=== PATIENT | male | born 1945 | race Caucasian/White ===

== ENCOUNTER 2017-06-16 05:56 | Day surgery (SDC) | payer OTHER ==
[~2017-06-16] VITALS: Ht 172.7 cm; Wt 78.9 kg
[2017-06-16] VITALS (11 sets, daily range): BP systolic 139–182; BP diastolic 82–118; PULSE 66–92; RESP 16–20; TEMP 97.8–98.6; O2SAT 97–99
[~2017-06-16 05:56] MED LIST: ASPI325T PO; CLON.1 PO; COZA100T PO; DILT180C56 PO; GEMF600T PO; PRAV20TA PO; TAB-TAB PO
[2017-06-16] MEDS ORDERED: LORazepam 1 MG TAB SL SCH (06:15)
[2017-06-16] MEDS ORDERED: POVIDONE IODINE 5% (ANTISEPSIS KIT) 4 APPLICATIONS EACH NARE PRN (06:30)
[2017-06-16] MEDS ORDERED: METOPROLOL TARTRATE 25 MG TAB PO PRN (06:30)
[2017-06-16] MEDS ORDERED: CHLORHEXIDINE GLUCONATE 2 % 1 PACK (2 CLOTHS) TOPICAL PRN (06:30)
[2017-06-16] MEDS ORDERED: LACTATED RINGER'S 1000 ML IV PRN (06:30)
[2017-06-16] MEDS ORDERED: SODIUM CHLORID 0.9% 500 ML IV PRN (06:30)
[2017-06-16] MEDS ORDERED: LOSA100T PO (06:42)
[2017-06-16] MEDS ORDERED: APIX5TAB PO (06:42)
[2017-06-16] MEDS ORDERED: CARD120C4 PO (06:42)
[2017-06-16] MEDS ORDERED: FENO160T PO (06:42)
[2017-06-16] MEDS ORDERED: VITATAB56 PO (06:42)
[2017-06-16] MEDS ORDERED: TEMA30CA PO (06:42)
[2017-06-16 06:58] LABS: AUTOMATED NEUTROPHIL # 3.4 TH/MM3 (1.8-7.7); BASOPHIL % 0.7 % (0.0-2.0); EOSINOPHIL # 0.2 TH/MM3 (0-0.4); EOSINOPHIL % 3.8 % (0.0-4.0); HEMATOCRIT 46.3 % (39.0-51.0); HEMOGLOBIN 15.7 GM/DL (13.0-17.0); LYMPH % 26.2 % (9.0-44.0); LYMPHOCYTE # 1.6 TH/MM3 (1.0-4.8); MEAN CELL VOLUME 87.2 FL (80.0-100.0); MEAN CORPUSCULAR HEMOGLOBIN 29.6 PG (27.0-34.0); MEAN CORPUSCULAR HGB CONC 33.9 % (32.0-36.0); MEAN PLATELET VOLUME 9.1 FL (7.0-11.0); MONO % 12.6 % (0.0-8.0); MONOCYTE # 0.7 TH/MM3 (0-0.9); NEUT % 56.7 % (16.0-70.0); PLATELET COUNT 196 TH/MM3 (150-450); RED BLOOD COUNT 5.31 MIL/MM3 (4.50-5.90); RED CELL DISTRIBUTION WIDTH 16.1 % (11.6-17.2); WHITE BLOOD COUNT 5.9 TH/MM3 (4.0-11.0)
[2017-06-16 06:59] LABS: INTERNATIONAL NORMALIZED RATIO 1.4 RATIO; PROTHROMBIN TIME - PATIENT 13.7 SEC (9.8-11.6)
[2017-06-16 07:07] LABS: BICARBONATE 28.4 MEQ/L (21.0-32.0); CALCIUM 9.6 MG/DL (8.5-10.1); CREATININE 1.4 MG/DL (0.60-1.30)
[2017-06-16] MEDS ORDERED: LEVOFLOXACIN 500 MG PREMIX INJ 100 ML IV ONE (08:07)
[2017-06-16] MEDS ORDERED: HEPARIN-NS/PF INJ 1,000 ML ONE (08:07)
[2017-06-16] MEDS ORDERED: PROTAMINE SULFATE 50 MG/5 ML VIAL ONE (08:49)
[2017-06-16] MEDS ORDERED: HEPARIN SODIUM - IV 10,000 UNITS/10 ML VIAL ONE (08:49)
[2017-06-16] MEDS ORDERED: FUROSEMIDE 40 MG/4 ML VIAL ONE (08:49)
[2017-06-16] MEDS ORDERED: HEPARIN-D5W 25,000 U/250 ML 250 ML ONE (08:49)
[2017-06-16] MEDS ORDERED: ISOPROTERENOL HCL 1 MG/5 ML AMP ONE (08:49)
[2017-06-16] MEDS ORDERED: MIDAZOLAM HCL 2 MG/2 ML VIAL ONE (09:18)
[2017-06-16] MEDS ORDERED: ePHEDrine/NS 25 MG/5 ML SYRINGE IV ONE (12:00)
[2017-06-16] MEDS ORDERED: NEOSTIGMINE 5 MG/5 ML SYRINGE IV PUSH ONE (12:00)
[2017-06-16] MEDS ORDERED: ROCURONIUM INJ 50 MG/5 ML SYRINGE IV PUSH ONE (12:00)
[2017-06-16] MEDS ORDERED: PROPOFOL 200 MG/20 ML AMP IV ONE (12:00)
[2017-06-16] MEDS ORDERED: PHENYLEPH/NS 1000 MCG/10 ML SYR IV ONE (12:00)
[2017-06-16] MEDS ORDERED: GLYCOPYRROLATE 1 MG/5 ML SYRINGE IV PUSH ONE (12:00)
[2017-06-16] MEDS ORDERED: DEXAMETHASONE SOD PHOS 4 MG/ML VIAL IV ONE (12:00)
[2017-06-16] MEDS ORDERED: ONDANSETRON HCL 4 MG/2 ML VIAL IV ONE (12:00)
[2017-06-16] MEDS ORDERED: LIDOCAINE HCL 1% PF 5 ML SYRINGE OTHER ONE (12:00)
--- NOTE | 2017-06-16 12:04 | CATHPROC ---
Patient Name: ITZEL HINES Study #: [id number] Initial MD: Lucho Bernard Date of : 1945 Study Date: 06/16/2017 Cardiac Catheterization Report 06/16/2017 12:05:35 PM Financial #: [id number] 1 of 10 Patient Name: ITZEL HINES Study #: [id number] Initial MD: Lucho Bernard Date of : 1945 Study Date: 06/16/2017 Entire Case Report Patient Information Patient Name ITZEL HINES Date of 1945 Age 71 years Financial # [id number] Gender M AlternateID Lab Number 2 Room Number DC06 Height (in) 68.0 Height (cm) 172.7 BSA 1.93 Weight (lbs) 173.6 Weight (kg) 78.9 Patient Address/Phone Number Home Address [facility] Home Phone Number [phone] [facility] [address] Study Information Study Number Admission Scheduled Start Study Start [id number] Jun 16 2017 5:56AM 06/16/2017 Jun 16 2017 9:21AM [place] [facility] Electrophysiology Study Admit Source Facility Department Other [facility] - Cathodic Protection Technician Physician and Clinical Staff Initial Lucho Benito Die Fitter Joleen Pisano,CHILD NURSE Other Anesthesia, PANEL MACHINE OPERATOR Recorder Fabiana Duffy,RN Recorder Carlene Fried,CRISTY Scrub Celio Rivera,RT(R) Procedures Performed Procedure Location (Site) Vessel Name Ablation Procedure Cardioversion ICE CATHETER INSERT RA Atruim RF Ablation LT. ATRIUM LT. ATRIUM 06/16/2017 12:05:35 PM Financial #: [id number] 2 of 10 Patient Name: ITZEL HINES Study #: [id number] Initial MD: Lucho Bernard Date of : 1945 Study Date: 06/16/2017 Equipment Time Noc Technician Description Size Mfg Part Number Used/Scraped NEEDLE, TRANSSEPTAL NRG 98 [id number] 09:24 [facility] Used C1 *[id number] [employer]/ EP [id number] 09:24 KIT, TRANSDUCER / AFIB Used PACER *[id number] CATHETER, TACTICATH ABLAT BUNDLE 09:24 [facility] Used 65 BUNDLE *[id number]- BUNDLE [id number] CATHETER, FR7 OPTIMA SPIRAL 09:24 [facility] FR7 *[id number]- Used BUNDLE BUNDLE [id number] 09:24 [facility] CATHETER, JSN, QUAD BUNDLE FR 5 *[id number]- Used BUNDLE [id number] 09:24 [facility] CATHETER, JSN, QUAD BUNDLE FR 5 *[id number]- Used BUNDLE [id number] SET, COOL POINT TUBING 09:24 BUND[facility] *[id number]- Used BUNDLE BUNDLE SHEATH, FR8.5 STEERABLE SM 09:24 [facility] 71CM [id number] Used 71CM BUNDLE COVER, TRANSDUCER CABLE 612-113 09:24 [employer] Used ACUNAV *[id number] 09:24 CORDIS/PACER SHEATH, FR10 ALBERTA 11CM FR 10 Used *[id number] 09:24 CORDIS/PACER SHEATH, FR9 ALBERTA 11CM FR 9 [id number] Used [id number] 09:24 [employer] INDUSTRIES PACK, CCL CUSTOM * Used *[id number] 09:24 [employer] PACER BELL, LIMB * 2530 *[id number] Used [id number]-- 09:24 [employer] MEDICAL SHEATH, FR4.5 PRELUDE 11CM FR 4.5 Used [id number] 09:24 NAMIC TUBING, HIGH PRESSURE 48" 48" Used *[id number] 09:24 NAMIC TUBING, HIGH PRESSURE 48" 48" Used *[id number] 09:24 [employer] BL[employer]ET,WARM AIR CCL * Used *[id number] [id number] 09:24 [facility] MEDICAL ELECTRODE KIT, DEBI X SURFACE * Used *[id number] 09:24 [facility] MEDICAL SHEATH, EPS, FR6 FAST CATH FR 6 Used *[id number] 09:24 [facility] MEDICAL SHEATH, EPS, FR7 FAST CATH FR 7 [id number] Used 549648 09:24 [facility] MEDICAL SHEATH, EPS, FR8 FAST CATH FR 8 Used *[id number] CATHETER, ACUNAV FR10 ICE [id number] 09:59 VICENTE FR 10 Used (VICENTE) *[id number] [facility], ELECTROSURGICAL 09:24 * [id number] *[id number] Used SURGICAL GROUNDING (BLUE) 06/16/2017 12:05:35 PM Financial #: [id number] 3 of 10 Patient Name: ITZEL HINES Study #: [id number] Initial MD: Lucho Bernard Date of : 1945 Study Date: 06/16/2017 Insurance Information Insurance Payor Private Health Insurance Third Alliance Party Third Alliance Party Number [employer] G[employer]US HMO H[employer]CR[employer]X [place] History: Allergies Allergy Reaction No Known Allergies Plavix Warfarin History: Risk Factors Family History of Hypertension Dyslipidemia Previous MT Previous Heart Failure Premature CAD Yes Yes Yes No No Prior Valve Prior PCI Prior CABG Prior CABGDate Surgery No No Yes 06/09/2005 Cerebrovascular Peripheral Artery Chronic Lung On Dialysis Diabetes Disease Disease Disease No Yes No No No Labs Hgb (g/dl) Hct (%) WBC (l/cumm) Platelets (thousands) 11.60-17.00 35.00-51.00 4.00-11.00 150.00-450.00 15.7 46.3 5.9 196 Glucose (mg/dl) BUN (mg/dl) Creatinine (mg/dl) BUN:Creatinine (1:x) 74.00-106.00 7.00-18.00 0.50-1.30 10.00-20.00 80 22 1.4 15.7 Na (meq/l) K (meq/l) 136.00-145.00 3.50-5.10 141 3.3 INR (PTT:PT) 0.90-1.10 1.4 CPK-MB (ng/ML) 0.50-3.60 Not Drawn 06/16/2017 12:05:35 PM Financial #: [id number] 4 of 10 Patient Name: ITZEL HINES Study #: [id number] Initial MD: Lucho Bernard Date of : 1945 Study Date: 06/16/2017 Medication Medication Total Dose (Bolus/Oral) Medication Total Dosage/Unit 1% XYLOCAINE 40 mL HEPARIN 09738 units LASIX 20 mg PROTAMINE 40 mg Medications (Bolus/Oral) Medication Time Given Dosage/Unit Administered By Reason 1% XYLOCAINE 06/16/2017 9:51:08 AM 20 mL Lucho Bernard 20 mL 1% XYLOCAINE given in lab by Lucho Bernard in Left Groin via Subcutaneous. 1% XYLOCAINE 06/16/2017 9:54:51 AM 20 mL Lucho Bernard 20 mL 1% XYLOCAINE given in lab by Lucho Bernard in Right Groin via Subcutaneous. HEPARIN 06/16/2017 10:09:18 AM 31004 units Anesthesia, PANEL MACHINE OPERATOR 81222 units HEPARIN given in lab by Anesthesia, PANEL MACHINE OPERATOR via Peripheral IV. Ordered by Lucho Bernard. PROTAMINE 06/16/2017 11:27:29 AM 40 mg Anesthesia, PANEL MACHINE OPERATOR 40 mg PROTAMINE given in lab by Anesthesia, PANEL MACHINE OPERATOR via Peripheral IV. Ordered by Lucho Bernard. LASIX 06/16/2017 11:28:12 AM 20 mg Anesthesia, PANEL MACHINE OPERATOR 20 mg LASIX given in lab by Anesthesia, PANEL MACHINE OPERATOR via Peripheral IV. Ordered by Lucho Bernard. Medication (Drip) Medication Time Given Dosage/Unit Concentration/Unit Diluent (ml) Solution HEPARIN DRIP 06/16/2017 10:30:11 AM 1000 units/hr 05486 units 250 D5W 1000 units/hr HEPARIN DRIP given in lab by Anesthesia, PANEL MACHINE OPERATOR via Peripheral IV. Pump/Drip Flow = 10 ml /hr using D5[place] [address] units in 250 ml. Ordered by Lucho Bernard. ISUPREL 06/16/2017 11:06:00 AM 10 mcg/min 1 mg 250 NaCl .9 10 mcg/min ISUPREL given in lab by Anesthesia, PANEL MACHINE OPERATOR via Peripheral IV. Pump/Drip Flow = 150 ml/hr usi ng NaCl .9 with a concentration of 1 mg in 250 ml. Ordered by Lucho Bernard. 06/16/2017 12:05:35 PM Financial #: [id number] Patient Name: ITZEL HINES Study #: [id number] Initial MD: Lucho Bernard Date of : 1945 Study Date: 06/16/2017 Initial Case Assessment Cardiovascular HR Rhythm NIBP Chest Pain 85 AFIB 188/110 0 Edema Present Skin color Skin None Normal Warm Dry Circulatory - Right Pulses Dorsalis Pedis 1 Scale (0,1,2,3,4,d) Circulatory - Left Pulses Dorsalis Pedis 1 Scale (0,1,2,3,4,d) Neurological State Oriented to time-place- Alert Moves all extremities person Respiration - General Respiration Rate SpO2 (%) (B/min) 18 100 06/16/2017 12:05:35 PM Financial #: [id number] 6 of 10 Patient Name: ITZEL HINES Study #: [id number] Initial MD: Lucho Bernard Date of : 1945 Study Date: 06/16/2017 Final Case Assessment Cardiovascular HR Rhythm NIBP Chest Pain 88 sr 114/60 0 Edema Present Skin color Skin None Normal Warm Dry Circulatory - Right Pulses Dorsalis Pedis 1 Scale (0,1,2,3,4,d) Circulatory - Left Pulses Dorsalis Pedis 1 Scale (0,1,2,3,4,d) Circulatory - Lower Extremities Color Lower Right Color Lower Left Normal Normal Neurological State Lethargic Moves all extremities Respiration - General Respiration Rate SpO2 (%) O2 (lpm) (B/min) 16 100 4 Chronological Log Time Study Chronological Log 9:00:00 Patient arrived via Bed. 9:00:01 Patient Name, D.O.B, / Armband Verified By R.N. 9:15:58 Anesthesia at bedside. Assumes care of patient. SEE RECORDS FOR ALL MEDS AND VITALS DURING PROCEDURE 9:25:56 Pre-op and post- op instructions given; patient acknowledges understanding of instructions. Verbal Stimulation=~VERBAL~ Physical Stimulation=~PHYSICAL~ Airway=~AIRWAY~ Respiration=~RESPIR ATION~ 9:25:57 TOTAL=~TOTAL~. (0=absent, 1=limited, 2=present) 9:26:16 Patient has been NPO for More than 6Hrs. 9:26:17 Skin Breakdown- NON PER PATIENT 9:26:29 Disposable Defibrillator Pads Placed On Patient. 9:26:30 Patient Warmer Placed on the Table. 06/16/2017 12:05:35 PM Financial #: [id number] 7 of 10 Patient Name: ITZEL HINES Study #: [id number] Initial MD: Lucho Bernard Date of : 1945 Study Date: 06/16/2017 9:26:31 Elizabeth [employer] Protected 9:26:32 IV Warmer Connected To Patient. 9:26:34 A # 20 IV was noted in the Hand (left). Grade = 0 9:26:47 A # 20 IV was noted in the Wrist (right). Grade = 0 9:26:55 History and physical on the chart or being dictated. Assessment: Initial Case, HR=85 BPM, Rhythm=AFIB, XQSQ=444/110 mmhg, Chest Pain=0, Edema=None, Color=Normal, Skin = Warm, Dry Right Pulses: Diallo Ped=1 9:26:56 Left Pulses: Diallo Ped=1 Neurological: State=Alert, Ox3, RICE Respiration: Resp=18 B/min, WnE2=775 % 9:27:00 DR AGUERO / NARGIS WU AT BEDSIDE FOR INTUBATION 9:27:10 14F NAYLOR INSERTED BY Paul DUFFY CLEAR YELLOW URINE 9:27:27 Table restraints applied according to hospital policy 9:27:29 Bilateral groins prepped with 2% chlorhexidine, and draped after a 3 minute waiting time. Time Out. Correct patient, procedure, procedure equipment, site and side verified with physicia n present. Time 9:47:21 concurred by MD, individual staff and PANEL MACHINE OPERATOR. Time Out #2 - Consents verified, patient in correct position, all results are labled and displa yed, safety precautions 9:47:41 taken, antibiotics administered. Time out concurred by MD, individual staff and PANEL MACHINE OPERATOR in procedu re 9:47:52 Case Start 9:48:17 YRN IN PROGRESS 9:50:32 YRN COMPLETE 9:51:08 20 mL 1% XYLOCAINE given in lab by Lucho Bernard in Left Groin via Subcutaneous. 9:51:29 Vascular access was obtained in the Fem Vein (left). 9:51:44 Vascular access was obtained in the Fem Vein (left). 9:51:57 Vascular access was obtained in the Fem Vein (left). 9:51:58 Vascular access was obtained in the Fem Art (left). 9:52:10 A SHEATH, FR4.5 PRELUDE 11CM FR 4.5 was advanced into the Fem Art (left) using the Modified Seldinger technique. 9:52:31 A SHEATH, EPS, FR6 FAST CATH FR 6 was advanced into the Fem Vein (left) using the Modified Seldinger technique. 9:52:39 A SHEATH, EPS, FR7 FAST CATH FR 7 was advanced into the Fem Vein (left) using the Modified Seldinger technique. 9:52:42 A SHEATH, FR10 ALBERTA 11CM FR 10 was advanced into the Fem Vein (left) using the Modified S eldinger technique. 9:54:51 20 mL 1% XYLOCAINE given in lab by Lucho Bernard in Right Groin via Subcutaneous. 9:55:14 Vascular access was obtained in the Fem Vein (right). 9:55:52 A SHEATH, EPS, FR8 FAST CATH FR 8 was advanced into the Fem Vein (right) using the Modified Seldinger technique. A CATHETER, JSN, QUAD BUNDLE FR 5 was advanced vis Fem Vein (left) and placed in the CS. Placem ent was visually 9:57:26 confirmed under fluoroscopy. A CATHETER, JSN, QUAD BUNDLE FR 5 was advanced vis Fem Vein (left) and placed in the HIS. Place ment was 9:58:45 visually confirmed under fluoroscopy. 9:59:13 CATHETER, ACUNAV FR10 ICE (VICENTE) FR 10 Was Postioned. A SHEATH, FR8.5 STEERABLE SM 71CM BUNDLE 71CM was exchanged in the Fem Vein (right). This was n ecessary in 10:02:17 order to accomodate a larger catheter. 10:03:49 BAYLIS NEEDLE INSERTED 10:09:18 32068 units HEPARIN given in lab by Anesthesia, PANEL MACHINE OPERATOR via Peripheral IV. Ordered by Mignon Bernard. 06/16/2017 12:05:35 PM Financial #: [id number] Patient Name: ITZEL HINES Study #: [id number] Initial MD: Lucho Bernard Date of : 1945 Study Date: 06/16/2017 10:10:24 A eps was advanced to the right atrium and passed through the septal wall to the left atriu m. 10:10:28 BAYLIS NEEDLE REMOVED A CATHETER, FR7 OPTIMA SPIRAL BUNDLE FR7 was advanced vis Fem Vein (right) and placed in the LA . Placement 10:11:07 was visually confirmed under fluoroscopy. 10:11:39 MAPPING IN PROGRESS 10:14:28 Activated Clotting Time Drawn 10:22:17 ACT (Normal Range 90-180) = 374 10:25:10 Mapping complete. Catheter was removed A CATHETER, TACTICATH ABLAT 65 BUNDLE was advanced vis Fem Vein (right) and placed in the LA. P lacement was 10:25:21 visually confirmed under fluoroscopy. 10:27:39 RF Ablation of the LT. ATRIUM with a CATHETER, TACTICATH ABLAT 65 BUNDLE. 1000 units/hr HEPARIN DRIP given in lab by Anesthesia, PANEL MACHINE OPERATOR via Peripheral IV. Pump/Drip Flow = 10 ml/hr using 10:30:11 D[place] [address] units in 250 ml. Ordered by Lucho Bernard. 10:32:22 Ablationing in progress 10:45:49 ACT (Normal Range 90-180) = 360 11:01:26 ECG rhythm of AF noted. Patient cardioverted at 200 joules. Success 11:01:44 ECG rhythm of AF noted. Patient cardioverted at 300 joules. Success 10 mcg/min ISUPREL given in lab by Anesthesia, PANEL MACHINE OPERATOR via Peripheral IV. Pump/Drip Flow = 150 ml/ hr using NaCl .9 11:06:00 with a concentration of 1 mg in 250 ml. Ordered by Lucho Bernard. 11:16:57 d/c isuprel 11:19:51 Catheter(s) removed without difficulty A SHEATH, FR9 ALBERTA 11CM FR 9 was exchanged in the Fem Vein (right). This was necessary in ord er to minimize 11:19:58 site leakage. 11:21:29 Case End 11:24:56 No case complications noted. 11:24:59 Case complication noted. 11:25:01 Bedside Report will be given. 11:25:03 PACU called. Spoke to Rufina 11:26:05 Defibrillator and ground pads removed. Skin intact. 11:27:29 40 mg PROTAMINE given in lab by Anesthesia, PANEL MACHINE OPERATOR via Peripheral IV. Ordered by Tiana Bernard 11:28:12 20 mg LASIX given in lab by Anesthesia, PANEL MACHINE OPERATOR via Peripheral IV. Ordered by Lucho Bernard. 11:29:17 Ablation procedure performed: AFIB. 11:29:24 EP Procedure was performed. 11:29:50 Activated Clotting Time Drawn 11:31:55 ACT (Normal Range 90-180) = 121 11:33:08 Right groin sheath removed; pressure applied to access site by DB. 11:33:10 Left groin arterial sheath removed; pressure applied to access site by DC. 11:43:11 Left groin venous sheaths removed; pressure applied to access site by DC. 11:54:10 Sterile dressing applied to right groin site. Site wnl. 11:59:39 PT PRESENTLY BEING ETUBATED BY NARGIS WU 06/16/2017 12:05:35 PM Financial #: [id number] Patient Name: ITZEL HINES Study #: [id number] Initial MD: Lucho Bernard Date of : 1945 Study Date: 06/16/2017 12:02:29 PACU called. Spoke to Pat. 12:02:48 Bedside Report will be given. 12:03:00 Sterile dressing applied to site Left groin site. Site wnl. 12:03:05 Case End 12:03:06 No case complications noted. Assessment: Final Case, HR=88 BPM, Rhythm=sr, ZLQR=401/60 mmhg, Chest Pain=0, Edema=None, [place] r=Normal, Skin = Warm, Dry Right Pulses: Diallo Ped=1 Left Pulses: Diallo Ped=1 12:03:10 Lower Right Extremities: Color=Normal Lower Left Extremities: Color=Normal Neurological: State=Lethargic, RICE Respiration: Resp=16 B/min, GhO6=890 %, O2=4 lpm 12:04:10 Ablation procedure performed: AFIB. 12:04:13 EP Procedure was performed. End Study - Contrast Media Used In Study Contrast Total Opened (mL) Total Used (mL) Total Wasted (mL) Unspecified 0 0 0 End Study - Maximum Contrast Load Max Contrast Load (mL) 281.8 End Study - Radiation Exposure Fluoro Time (minutes) 4.8 End Study - Sheaths Sheaths Pulled By Sheath Hold Time (min) Celio Rivera End Study - Patient Disposition Complications Transferred To Interventional Outcome No Telemetry Bed successful 06/16/2017 12:05:35 PM Financial #: [id number]
[2017-06-16] MEDS ORDERED: oxyCODONE/ACETAMINOPHEN 5 MG/325 MG TAB PO PRN (12:15)
[2017-06-16] MEDS ORDERED: ONDANSETRON HCL 4 MG/2 ML VIAL IV PUSH PRN (12:15)
[2017-06-16] MEDS ORDERED: TEMAZEPAM 15 MG CAP PO PRN (12:15)
[2017-06-16] MEDS ORDERED: LIDOCAINE HCL 1% 50 ML VIAL INFIL PRN (12:15)
[2017-06-16] MEDS ORDERED: BACITRACIN OINT 0.9 GM PKT TOP ONE (12:15)
[2017-06-16] MEDS ORDERED: SODIUM CHLOR 0.9% 250 ML INJ 250 ML IV PRN (12:15)
[2017-06-16] MEDS ORDERED: ATROPINE SULFATE 1 MG/ML VIAL IV PUSH PRN (12:15)
[2017-06-16] MEDS ORDERED: METOCLOPRAMIDE HCL 10 MG/2 ML VIAL IV PUSH PRN (12:15)
[2017-06-16] MEDS ORDERED: LORazepam 2 MG/ML VIAL IV PUSH PRN (12:15)
--- NOTE | 2017-06-16 12:33 | PD.CARD ---
Atrial Fibrillation Ablation PROCEDURE DATE: Jun 16, 2017 PROCEDURES PERFORMED: 1. Electrophysiology study on Isuprel infusion 2. CS cannulation 3. 3-D mapping 4. Transseptal approach 5. Right and left heart catheterization 6. Intracardiac echo 7. Radiofrequency ablation of atrial fibrillation 8. Pulmonary vein isolation 9. Posterior wall ablation 10. Mitral valve isolation 11. Mitral line creation 12. Roof line creation 13. Floor line creation 14. Anterior wall ablation 15. Cardioversion INDICATIONS FOR THE PROCEDURE Mr. Oswald is a 71-year-old male with atrial fibrillation, very symptomatic, on anticoagulation, referred for electrophysiology study and ablation. The risks, the nature and the benefits of the procedure were clearly stated to him. The risks include pneumothorax, cardiac perforation, stroke, need for open heart surgery and even . The patient understood and agreed to proceed. DESCRIPTION OF THE PROCEDURE IN DETAIL As written informed consent was obtained prior to esophageal echocardiogram, the patient was kept on the table where he was prepped and draped in the usual sterile fashion. Conscious sedation was initiated and maintained throughout the procedure by the anesthesiologist. Once sedation was verified, the right and left inguinal areas were anesthetized with 2% Xylocaine. Using modified Seldinger technique, the left femoral vein was cannulated on three occasions, three guidewires were advanced. Over the wire a 6, 7 and a 10-Thai Hemaquet were advanced. Then the left femoral artery was cannulated on one occasion, one guidewire was advanced. Over the wire a 4-Thai Hemaquet was advanced. Then the right femoral vein was cannulated on one occasion, one guidewire was advanced. Over the wire a 8-Thai Hemaquet was advanced. Then under fluoroscopic guidance through the 6 and 7-Thai Hemaquet, two 5-Thai Korina curved quadripolar electrophysiology catheters were advanced and placed around the His as well as coronary sinus. Basic interval was measured. The patient was in atrial fibrillation. Through the 10-Thai Hemaquet, a Cordis Clarke AcuNav intracardiac echo catheter was advanced and placed at the right atrium. Multiple view was obtained. There was no pericardial effusion, pulmonary vein was seen, atrial septal was visualized. Then the 8-Thai Hemaquet in the right femoral vein was exchanged for Agilis transseptal sheath that was placed all the way to the superior vena cava. Through the sheath a Kendal needle was advanced, then the sheath, the dilator and the needle were progressed until foci engaged. Once engaged, the needle was advanced. RF was delivered for 2 seconds. I was able to cross into the left atrium. Once the needle crossed, the dilator was advanced. Once the dilator crossed, the sheath was advanced. Once the sheath crossed, the dilator and the needle were removed. At this point I did flood the system and fluid movement was seen in the left atrium the indicates the sheath is in good position. The patient already received 10,000 units of heparin. The goal is to keep an ACT around 350 during ablation. Then through the sheath a [place]. Olvin 20 pulse circumferential catheter was advanced. Using Yell[employer]ru endocardial solution mapping system, a two-dimensional configuration of the left atrium was obtained. Points were taken at the left superior and inferior veins, right superior and inferior veins, mitral valve, and appendages. Then through the sheath a St. Olvin TactiCath 65cm 3.5mm irrigated tipped mapping and radiofrequency ablation catheter was advanced. Esophageal probe was placed temperature monitoring during ablation. When it increased to 0.5 degrees Celsius above baseline, I moved to a different area of the atrium. First I did isolate the left superior and inferior vein. I did make a big [place] around the veins. Posterior was ablated. Then a roof line was created, a floor line was created, a mitral line was isolated, then the mitral valve was isolated. I did create a line from the floor to the roof area, passing by the left atrial appendage. Then the right superior and inferior veins were isolated. I did remap the atrium. There is no significant signal in the atrium. At this point I decided to proceed with cardioversion. A 200 sync biphasic joule was delivered that converted the patient into sinus rhythm. At that point I did advance the circumferential catheter again into the vein. There was no signal into the vein, pacing from the vein showed no conduction to the atrium. Isuprel infusion was initiated at 10 mcg for over 10 minutes. No tachyarrhythmia was induced, post Isuprel no tachyarrhythmia was induced. At that point the procedure was complete. All catheters were removed, atrial septal sheath was exchanged for 9-Thai Hemaquet, intracardiac echo showed no pericardial effusion. There is still good flow in the pulmonary vein. The patient is going to be transferred to the recovery room. No incident report. The patient tolerated the procedure. Blood loss was minimal. FINDINGS 1. Electrocardiogram: At baseline the patient was in atrial fibrillation, post procedure the patient was in sinus rhythm. 2. Basic interval: Base cycle length was around 680 ms. Post ablation she was around 940 milliseconds. AH at 98 and HV at 66 milliseconds. 3. Tachyarrhythmia: Atrial fibrillation was mapped and ablated. The ablation was successful. CONCLUSION Successful electrophysiology study, mapping, radiofrequency ablation of atrial fibrillation, left atrial tachycardia, pulmonary vein isolation, posterior ablation, mitral valve isolation, mitral line creation, roof line creation, floor line creation, and cardioversion. COMMENTS AND RECOMMENDATIONS The patient is going to be transferred to the telemetry unit. Will be observed and when stable can be discharged home. Lucho Bernard MD Jun 16, 2017 12:33
[2017-06-16] MEDS ORDERED: DO NOT ADM ANY ANTICOAGULANT DRUGS PRN (14:45)
[2017-06-16] MEDS: SODIUM CHLORID 0.9% 500 ML INJ 500 ML IV SCH ×2 (15:00→22:55)
--- NOTE | 2017-06-16 15:07 | EKG ---
Date Performed: 06/16/2017 Time Performed: 12:37:18 PTAGE: 71 years EKG: Baseline artifact present Probable Sinus rhythm with premature atrial and ventricular contractions INFERIOR MYOCARDIAL INFARCTION , PROBABLY OLD ABN ORMAL ECG Compared to prior electrocardiogram, probable sinus rhythm has replaced what appeared to be atrial fibrillation. PREVIOUS TRACING : 06/16/2017 06.58 DOCTOR: Prasanna Estrella Interpretating Date/Time 06/16/2017 15:05:03
[2017-06-16] MEDS: AMIODARONE 200 MG TAB PO SCH ×2 (16:10→21:41)
[2017-06-16] MEDS: oxyCODONE/ACETAMINOPHEN 5 MG/325 MG TAB PO PRN (16:56)
[2017-06-16] MEDS ORDERED: FUROSEMIDE 40 MG/4 ML VIAL IV PUSH ONE (17:30)
[2017-06-16] MEDS: APIXABAN 5 MG TABLET PO SCH (21:41)
--- NOTE | 2017-06-16 21:58 | EKG ---
Date Performed: 06/16/2017 Time Performed: 06:58:44 PTAGE: 71 years EKG: Atrial fibrillation. Inferior infarct - age undetermined Abnormal ECG PREVIOUS TRACING : 09/27/2011 11.46 Since previous tracing, no significant change noted DOCTOR: Lobito Brooke Interpretating Date/Time 06/16/2017 21:56:21
[2017-06-17] VITALS (23 sets, daily range): BP systolic 125–159; BP diastolic 66–88; PULSE 63–95; RESP 12–17; TEMP 98.2–98.6; O2SAT 96–98
[2017-06-17 06:47] LABS: INTERNATIONAL NORMALIZED RATIO 1.4 RATIO; PROTHROMBIN TIME - PATIENT 13.9 SEC (9.8-11.6)
[2017-06-17] MEDS: AMIODARONE 200 MG TAB PO SCH ×2 (08:46→18:47)
[2017-06-17] MEDS: APIXABAN 5 MG TABLET PO SCH (08:47)
[2017-06-17] MEDS ORDERED: LOSARTAN 50 MG TAB PO SCH (09:00)
[2017-06-17] MEDS ORDERED: CHOLECALCIFEROL (VIT D3) 400 UNIT TAB PO SCH (09:00)
[2017-06-17] MEDS ORDERED: FENOFIBRATE 145 MG TAB PO SCH (09:00)
[2017-06-17] MEDS: SODIUM CHLORID 0.9% 500 ML INJ 500 ML IV SCH (09:21)
[2017-06-17] MEDS: oxyCODONE/ACETAMINOPHEN 5 MG/325 MG TAB PO PRN (11:12)
--- NOTE | 2017-06-17 17:16 | HHI.PR ---
Subjective Remarks Alert, fully oriented Lungs: ventilated Heart: S1, S2 regular Abdomen: soft, no mass Ext: no edema Current Medications Medications (Trade) Dose Ordered Sig/Wendy Route Start Time Stop Time Status Last Admin Sodium Chloride 500 ml @ 30 mls/hr [id number] IV 06/16/17 06:15 (Ativan) 1 mg SWEEPER DRIVER SL 06/16/17 06:15 06/19/17 06:14 Lactated Ringer's 1,000 ml @ 30 mls/hr Q24H PRN IV 06/16/17 06:30 06/19/17 06:29 Sodium Chloride 500 ml @ 30 mls/hr [id number] PRN IV 06/16/17 06:30 06/19/17 06:29 (Lopressor) 25 mg SWEEPER DRIVER PRN PO 06/16/17 06:30 06/19/17 06:29 (Betadine 5% Antisepsis Kit) 1 applic SWEEPER DRIVER PRN EACH NARE 06/16/17 06:30 06/19/17 06:29 (Chlorhexidine 2% Cloth) 3 pack SWEEPER DRIVER PRN TOPICAL 06/16/17 06:30 06/19/17 06:29 (Percocet 5-325 Mg) 1 tab Q4H PRN PO 06/16/17 12:15 06/17/17 11:12 (Percocet 5-325 Mg) 2 tab Q4H PRN PO 06/16/17 12:15 (Atropine Inj) 0.5 mg UNSCH PRN IV PUSH 06/16/17 12:15 (Reglan Inj) 10 mg Q4H PRN IV PUSH 06/16/17 12:15 (Zofran Inj) 4 mg Q4H PRN IV PUSH 06/16/17 12:15 (Eliquis) 5 mg BID PO 06/16/17 21:00 06/17/17 08:47 (Vitamin D3) 400 units DAILY PO 06/17/17 09:00 06/17/17 08:46 (Cozaar) 100 mg DAILY PO 06/17/17 09:00 06/17/17 08:46 (Restoril) 30 mg HS PRN PO 06/16/17 12:15 06/16/17 21:41 (Tricor) 145 mg DAILY PO 06/17/17 09:00 06/17/17 08:46 (Cordarone) 400 mg BID PO 06/16/17 15:00 06/17/17 08:46 Objective Vital Signs Date Time Temp Pulse Resp B/P (MAP) Pulse Ox O2 Delivery O2 Flow Rate FiO2 06/17/17 16:12 98.3 78 16 159/66 (97) 97 06/17/17 16:00 70 06/17/17 15:00 66 06/17/17 14:40 98.6 72 17 159/88 (111) 97 06/17/17 14:00 68 06/17/17 13:00 66 06/17/17 12:41 20 06/17/17 12:00 70 06/17/17 11:00 66 06/17/17 11:00 98.6 63 16 125/72 (89) 96 06/17/17 10:00 63 06/17/17 09:00 72 06/17/17 08:00 72 06/17/17 07:30 98.2 65 12 132/70 (90) 96 06/17/17 07:00 76 06/17/17 06:28 66 06/17/17 05:06 66 06/17/17 05:00 98.5 69 16 132/82 (99) 96 06/17/17 04:00 68 06/17/17 03:00 72 06/17/17 02:00 95 06/17/17 01:10 95 06/17/17 00:00 93 06/17/17 00:00 98.5 68 16 136/75 (95) 98 06/16/17 23:35 92 06/16/17 22:00 92 06/16/17 21:00 87 06/16/17 20:00 86 06/16/17 19:39 98.5 66 16 139/82 (101) 97 06/16/17 19:00 80 06/16/17 18:00 92 I/O 06/16/17 06/16/17 06/16/17 06/17/17 06/17/17 06/17/17 07:00 15:00 23:00 07:00 15:00 23:00 Intake Total 200 ml 240 ml Output Total 1000 ml 300 ml 950 ml Balance -1000 ml -100 ml -710 ml Intake Oral 200 ml 240 ml IV Total 0 ml Output Urine Total 1000 ml 300 ml 950 ml Result Diagram: 06/16/1761906/16/17619 Assessment and Plan Problem List: (1) Atrial fibrillation ICD Codes: I48.91 - Unspecified atrial fibrillation Plan: SP atrial fibrillation ablation Doing well In sinus rhythm DH on hold for now because patient not voiding since this morning Bladder U/S indicated 250cc Will be monitored If void can be DH later tonight (2) Palpitations ICD Codes: R00.2 - Palpitations Lucho Bernard MD Jun 17, 2017 17:16
[2017-06-17] MEDS ORDERED: AMIO400T PO (17:21)
[2017-06-17] MEDS ORDERED: AMIO200T PO (17:21)
--- NOTE | 2017-06-18 12:46 | EKG ---
Date Performed: 06/17/2017 Time Performed: 16:42:02 PTAGE: 71 years EKG: Atrial fibrillation Inferior infarct - age undetermined Abnormal ECG Compared to PREVIOUS TRACING , the rhythm is now atrial fibrillation. PREVIOUS TRACIN06/16/2017 12 .37 DOCTOR: Carlos St Interpretating Date/Time 06/18/2017 12:45:07
== END 2017-06-17 18:58 | disposition home or self-care (01) ==
LOC: HDOC 05:56 → HDIC 05:57 → HCIS 15:53 → HDOC 06-17 18:58
PROVIDERS: ATTEND Internal Medicine Interventional Cardiology
DX: I48.2 Chronic atrial fibrillation (principal)
CPT/HCPCS: 00537; 80048; 85002; 85025; 85610; 85730; 86850; 86900; 86901; 92960; 93005; 93613; 93623; 93656; 93662; C1730; C1731; C1732; C1759; C1766; C2630; J1100; J1644; J1940; J1956; J2250; J2370; J2405; J2710; J2720; J3010

== ENCOUNTER 2017-09-27 06:03 | Day surgery (SDC) | payer OTHER ==
[2017-09-27] VITALS (10 sets, daily range): BP systolic 144–156; BP diastolic 83–108; PULSE 72–93; RESP 13–18; TEMP 97.9–99.2; O2SAT 92–95
[~2017-09-27] VITALS: Ht 172.7 cm; Wt 76.6 kg
[~2017-09-27 06:03] MED LIST changes: +AMIO200T PO; +AMIO400T PO; +APIX5TAB PO; -ASPI325T PO; -CLON.1 PO; -COZA100T PO; -DILT180C56 PO; +FENO160T PO; -GEMF600T PO; +LOSA100T PO; -PRAV20TA PO; -TAB-TAB PO; +TEMA30CA PO; +VITATAB56 PO
[2017-09-27] MEDS ORDERED: LACTATED RINGER'S 1000 ML IV PRN (06:30)
[2017-09-27] MEDS ORDERED: CHLORHEXIDINE GLUCONATE 2 % 1 PACK (2 CLOTHS) TOPICAL PRN (06:30)
[2017-09-27] MEDS ORDERED: POVIDONE IODINE 5% (ANTISEPSIS KIT) 4 APPLICATIONS EACH NARE PRN (06:30)
[2017-09-27] MEDS ORDERED: SODIUM CHLORID 0.9% 500 ML IV PRN (06:30)
[2017-09-27] MEDS ORDERED: LORazepam 1 MG TAB SL SCH (06:30)
[2017-09-27] MEDS ORDERED: METOPROLOL TARTRATE 25 MG TAB PO PRN (06:30)
[2017-09-27] MEDS ORDERED: ROSU1TAB8 PO (07:06)
[2017-09-27] MEDS ORDERED: COQ150CA PO (07:06)
[2017-09-27] MEDS ORDERED: CARD120C4 PO (07:06)
[2017-09-27] MEDS ORDERED: MIDAZOLAM HCL 2 MG/2 ML VIAL ONE (07:08)
[2017-09-27] MEDS ORDERED: HEPARIN-D5W 25,000 U/250 ML 250 ML ONE (07:08)
[2017-09-27] MEDS ORDERED: FAMOTIDINE 20 MG/2 ML VIAL ONE (07:09)
[2017-09-27] MEDS ORDERED: PROTAMINE SULFATE 50 MG/5 ML VIAL ONE ×2 (07:09→09:49)
[2017-09-27] MEDS ORDERED: HEPARIN SODIUM - IV 10,000 UNITS/10 ML VIAL ONE ×2 (07:09→08:48)
[2017-09-27] MEDS ORDERED: SODIUM CHLOR 0.9% 250 ML INJ 250 ML ONE (07:11)
[2017-09-27] MEDS: SODIUM CHLORID 0.9% 500 ML INJ 500 ML IV SCH ×2 (07:15→23:10)
[2017-09-27] MEDS ORDERED: LEVOFLOXACIN 500 MG PREMIX INJ 100 ML IV ONE (07:19)
[2017-09-27] MEDS ORDERED: HEPARIN-NS/PF FLUSH BAG 2,000 ML IV FLUSH ONE (07:19)
[2017-09-27] MEDS ORDERED: LIDOCAINE HCL 1% PF 30 ML VIAL ONE (07:20)
[2017-09-27 07:34] LABS: BICARBONATE 24.1 MEQ/L (21.0-32.0); CALCIUM 9.7 MG/DL (8.5-10.1); CREATININE 1.56 MG/DL (0.60-1.30)
[2017-09-27 07:38] LABS: INTERNATIONAL NORMALIZED RATIO 1.5 RATIO; PROTHROMBIN TIME - PATIENT 14.7 SEC (9.8-11.6)
[2017-09-27 07:50] LABS: AUTOMATED NEUTROPHIL # 4.3 TH/MM3 (1.8-7.7); BASOPHIL # 0.1 TH/MM3 (0-0.2); BASOPHIL % 1.3 % (0.0-2.0); EOSINOPHIL # 0.2 TH/MM3 (0-0.4); HEMATOCRIT 44.8 % (39.0-51.0); HEMOGLOBIN 14.8 GM/DL (13.0-17.0); LYMPH % 14.9 % (9.0-44.0); LYMPHOCYTE # 0.9 TH/MM3 (1.0-4.8); MEAN CELL VOLUME 88.5 FL (80.0-100.0); MEAN CORPUSCULAR HEMOGLOBIN 29.3 PG (27.0-34.0); MEAN CORPUSCULAR HGB CONC 33.1 % (32.0-36.0); MONOCYTE # 0.7 TH/MM3 (0-0.9); NEUT % 69.8 % (16.0-70.0); PLATELET COUNT 143 TH/MM3 (150-450); RED BLOOD COUNT 5.06 MIL/MM3 (4.50-5.90); RED CELL DISTRIBUTION WIDTH 15.9 % (11.6-17.2); WHITE BLOOD COUNT 6.1 TH/MM3 (4.0-11.0)
[2017-09-27] MEDS ORDERED: POTASSIUM CHLOR 20 MEQ PREMIX 100 ML ONE (08:11)
--- NOTE | 2017-09-27 09:46 | CATHPROC ---
Patient Name: ITZEL HINES Study #: [id number] Initial MD: Lucho Bernard Date of : 1945 Study Date: 09/27/2017 Cardiac Catheterization Report 09/27/2017 9:58:40 AM Financial #: [id number] 1 of 10 Patient Name: ITZEL HINES Study #: [id number] Initial MD: Lucho Bernard Date of : 1945 Study Date: 09/27/2017 Entire Case Report Patient Information Patient Name ITZEL HINES Date of 1945 Age 72 years Financial # [id number] Gender M AlternateID Lab Number 2 Room Number DC05 Height (in) 68.0 Height (cm) 172.7 BSA 1.90 Weight (lbs) 167.2 Weight (kg) 76.0 Patient Address/Phone Number Home Address [facility] Home Phone Number [phone] [facility] [id number] Study Information Study Number Admission Scheduled Start Study Start [id number] Sep 27 2017 6:03AM 09/27/2017 Sep 27 2017 7:09AM [facility] Elect[facility]iology Study Admit Source Facility Department Other [facility] Physician and Clinical Staff Initial Lucho Benito Tugboat Operator Celio Rivera,RT(R) Other Anesthesia, CLOTHING WORKER Recorder Carlene Fried,CRISTY Scrub Rufina Freitas,RT(R) TECH2 Procedures Performed Procedure Location (Site) Vessel Name Ablation Procedure Cardioversion ICE CATHETER INSERT RA Atruim 09/27/2017 9:58:40 AM Financial #: [id number] 2 of 10 Patient Name: ITZEL HINES Study #: [id number] Initial MD: Lucho Bernard Date of : 1945 Study Date: 09/27/2017 Equipment Time Technology Trainer Description Size Mfg Part Number Used/Scraped NEEDLE, TRANSSEPTAL NRG 98 [id number] 07:11 [facility] Used C1 *[id number] [employer]/ EP [id number] 07:11 KIT, TRANSDUCER / AFIB Used PACER *[id number]- CATHETER, TACTICATH ABLAT BUNDLE 07:11 [employer] [facility] Used 65 BUNDLE *[id number]- BUNDLE [id number] CATHETER, FR7 OPTIMA SPIRAL 07:11 [facility] FR7 *[id number]- Used BUNDLE BUNDLE [id number] 07:11 [employer] [facility] CATHETER, JSN, QUAD BUNDLE FR 5 *[id number]- Used BUNDLE [id number] 07:11 [employer] [facility] CATHETER, JSN, QUAD BUNDLE FR 5 *[id number]- Used BUNDLE 47258-[id number] SET, COOL POINT TUBING 07:11 [facility]UND[employer]-[facility] *[id number]- Used BUNDLE BUNDLE SHEATH, FR8.5 STEERABLE SM 07:11 [facility]UN[facility] 71CM [id number] Used 71CM BUNDLE COVER, TRANSDUCER CABLE 612-113 07:11 [employer] Used ACUNAV *[id number] 07:11 CORDIS/PACER SHEATH, FR10 ALBERTA 11CM FR 10 Used *[id number] 07:11 CORDIS/PACER SHEATH, FR9 ALBERTA 11CM FR 9 [id number] Used [id number] 07:11 T3 [employer] PACK, CCL CUSTOM * Used *[id number] 07:11 T3 MOTION PACER BELL, LIMB * 2530 *[id number] Used PSI-4F-- 07:11 [employer] MEDICAL SHEATH, FR4.5 PRELUDE 11CM FR 4.5 Used [id number] 07:11 NAMIC TUBING, HIGH PRESSURE 48" 48" Used *[id number] [id number] 07:11 NAMIC TUBING, HIGH PRESSURE 48" 48" Used *[id number] 07:11 [employer] BL[employer]ET,WARM AIR CCL * Used *7286009 [id number] 07:11 [facility] MEDICAL ELECTRODE KIT, DEBI X SURFACE * Used *[id number] 235492 07:11 [facility] MEDICAL SHEATH, EPS, FR6 FAST CATH FR 6 Used *[id number] 07:11 [facility] MEDICAL SHEATH, EPS, FR7 FAST CATH FR 7 [id number] Used 283634 07:11 [facility] MEDICAL SHEATH, EPS, FR8 FAST CATH FR 8 Used *[id number] CATHETER, ACUNAV FR10 ICE [id number] 08:36 VICENTE FR 10 Used (VICENTE) *[id number] [facility] PAD, ELECTROSURGICAL 07:11 * [id number] *[id number] Used SURGICAL GROUNDING (BLUE) 09/27/2017 9:58:40 AM Financial #: [id number] 3 of 10 Patient Name: ITZEL HINES Study #: [id number] Initial MD: Lucho Bernard Date of : 1945 Study Date: 09/27/2017 Insurance Information Insurance Payor Private Health Insurance Third Republican Third Republican Number DANIELA GAVIN [employer]US [employer] History: Allergies Allergy Reaction No Known Allergies History: Risk Factors Hypertension Dyslipidemia Yes Yes Prior CABG Yes Cerebrovascular Disease Yes Labs Hgb (g/dl) Hct (%) RBC (MIL/MM3) WBC (l/cumm) Platelets (thousands) 11.60-17.00 35.00-51.00 4.00-5.90 4.00-11.00 150.00-450.00 14.0 44 5 6 143 Glucose (mg/dl) BUN (mg/dl) Creatinine (mg/dl) BUN:Creatinine (1:x) 74.00-106.00 7.00-18.00 0.50-1.30 10.00-20.00 86 19 1.6 11.9 Na (meq/l) K (meq/l) 136.00-145.00 3.50-5.10 142 3.2 INR (PTT:PT) 0.90-1.10 1.5 Medication Medication Total Dose (Bolus/Oral) Medication Total Dosage/Unit 1% XYLOCAINE 40 mL HEPARIN 61617 units PROTAMINE 60 mg 09/27/2017 9:58:40 AM Financial #: [id number] 4 of 10 Patient Name: ITZEL HINES Study #: [id number] Initial MD: Lucho Bernard Date of : 1945 Study Date: 09/27/2017 Medications (Bolus/Oral) Medication Time Given Dosage/Unit Administered By Reason 1% XYLOCAINE 09/27/2017 8:27:18 AM 20 mL Lucho Bernard 20 mL 1% XYLOCAINE given in lab by Lucho Bernard in Left Groin via Subcutaneous. 1% XYLOCAINE 09/27/2017 8:31:10 AM 20 mL Lucho Bernard 20 mL 1% XYLOCAINE given in lab by Lucho Bernard in Right Groin via Subcutaneous. HEPARIN 09/27/2017 8:35:13 AM 22004 units Anesthesia, CLOTHING WORKER As per physicians anabell bal order 26301 units HEPARIN given in lab by Anesthesia, CLOTHING WORKER via Peripheral IV. Ordered by Lucho Bernard. Holli son: As per physicians verbal order. HEPARIN 09/27/2017 8:48:08 AM 2000 units Anesthesia, CLOTHING WORKER As per physicians anabell bal order 2000 units HEPARIN given in lab by Anesthesia, CLOTHING WORKER via Peripheral IV. Ordered by Lucho Bernard. Reas on: As per physicians verbal order. HEPARIN 09/27/2017 9:02:07 AM 2000 units Anesthesia, CLOTHING WORKER As per physicians anabell bal order 2000 units HEPARIN given in lab by Anesthesia, CLOTHING WORKER via Peripheral IV. Ordered by Lucho Bernard. Reas on: As per physicians verbal order. PROTAMINE 09/27/2017 9:37:19 AM 40 mg Anesthesia, CLOTHING WORKER As per physicians verb al order 40 mg PROTAMINE given in lab by Anesthesia, CLOTHING WORKER via Peripheral IV. Ordered by Lucho Bernard. Reason: As per physicians verbal order. PROTAMINE 09/27/2017 9:51:00 AM 20 mg Anesthesia, CLOTHING WORKER As per physicians verb al order 20 mg PROTAMINE given in lab by Anesthesia, CLOTHING WORKER via Peripheral IV. Ordered by Lucho Bernard. Reason: As per physicians verbal order. Medication (Drip) Medication Time Given Dosage/Unit Concentration/Unit Diluent (ml) Solution HEPARIN DRIP 09/27/2017 8:48:23 AM 1000 units/hr 91456 units 250 D5W 1000 units/hr HEPARIN DRIP given in lab by Anesthesia, CLOTHING WORKER via Peripheral IV. Pump/Drip Flow = 10 ml /hr [place] D5[place] [address] units in 250 ml. Ordered by Lucho Bernard. Reason: As per physicians verbal order. 09/27/2017 9:58:40 AM Financial #: [id number] Patient Name: ITZEL HINES Study #: [id number] Initial MD: Lucho Bernard Date of : 1945 Study Date: 09/27/2017 Initial Case Assessment Cardiovascular HR Rhythm NIBP Chest Pain 94 af 174/101 0 Edema Present Skin color Skin None Normal Warm Dry Circulatory - Right Pulses Dorsalis Pedis 2 Scale (0,1,2,3,4,d) Circulatory - Left Pulses Dorsalis Pedis 2 Scale (0,1,2,3,4,d) Circulatory - Lower Extremities Color Lower Right Color Lower Left Normal Normal Neurological State Oriented to time-place- Alert Moves all extremities person Respiration - General Respiration Rate SpO2 (%) (B/min) 18 88 09/27/2017 9:58:40 AM Financial #: [id number] Patient Name: ITZEL HINES Study #: [id number] Initial MD: Lucho Bernard Date of : 1945 Study Date: 09/27/2017 Final Case Assessment Cardiovascular HR Rhythm NIBP Chest Pain 69 sr 112/59 0 Edema Present Skin color Skin None Normal Warm Dry Circulatory - Right Pulses Dorsalis Pedis 2 Scale (0,1,2,3,4,d) Circulatory - Left Pulses Dorsalis Pedis 2 Scale (0,1,2,3,4,d) Circulatory - Lower Extremities Color Lower Right Color Lower Left Normal Normal Neurological State Drowsy Moves all extremities Respiration - General Respiration Rate SpO2 (%) (B/min) 16 96 Chronological Log Time Study Chronological Log 7:16:11 Patient arrived via Bed. 7:16:12 Patient Name, D.O.B, / Armband Verified By R.N. 7:16:12 Consent signed by the physician and the patient and verified by the [facility] staff. 7:16:13 Pre-op and post- op instructions given; patient acknowledges understanding of instructions. 7:16:14 Verbal Stimulation=2 Physical Stimulation=2 Airway=2 Respiration=2 TOTAL=8. (0=absent, 1=li mited, 2=present) 7:16:15 Anesthesia at bedside. Assumes care of patient. 7:16:17 Patient has been NPO for More than 6Hrs. 7:16:18 Skin Breakdown- none per pt 7:16:19 Patient Warmer Placed on the Table. 09/27/2017 9:58:40 AM Financial #: [id number] Patient Name: ITZEL HINES Study #: [id number] Initial MD: Lucho Bernard Date of : 1945 Study Date: 09/27/2017 7:16:20 Disposable Defibrillator Pads Placed On Patient. 7:16:21 Elizabeth [employer] Protected 7:16:24 A # 20 IV was noted in the Antecubital (left). Grade = 0 0.9ns kvo 7:16:38 A # 20 IV was noted in the Antecubital (right). Grade = 0 0.9ns kvo 7:16:52 History and physical on the chart or being dictated. 7:30:40 Table restraints applied according to hospital policy Assessment: Initial Case, HR=94 BPM, Rhythm=af, QPCY=649/101 mmhg, Chest Pain=0, Edema=None, Co bhavana=Normal, Skin = Warm, Dry Right Pulses: Diallo Ped=2 Left Pulses: Diallo Ped=2 7:35:16 Lower Right Extremities: Color=Normal Lower Left Extremities: Color=Normal Neurological: State=Alert, Ox3, RICE Respiration: Resp=18 B/min, SpO2=88 % 8:00:37 Anesthesia present to intubate. 14 Fr pérez inserted w/o dificulty. Clear ellow urine obtai deloris. 8:19:49 Dr Bernard made aware of K, SCr and Inr lab results. Time Out. Correct patient, procedure, procedure equipment, site and side verified with physicia n present. Time 8:24:00 concurred by MD, individual staff and CLOTHING WORKER. Time Out #2 - Consents verified, patient in correct position, all results are labled and displa yed, safety precautions 8:24:14 taken, antibiotics administered. Time out concurred by MD, individual staff and CLOTHING WORKER in procedu re 8:24:19 Case Start 8:24:30 Edwin in progress 8:27:00 Edwin complete. 8:27:18 20 mL 1% XYLOCAINE given in lab by Lucho Bernard in Left Groin via Subcutaneous. 8:28:00 Vascular access was obtained in the Fem Vein (left). 8:28:18 Vascular access was obtained in the Fem Vein (left). 8:28:28 Vascular access was obtained in the Fem Vein (left). 8:28:32 Vascular access was obtained in the Fem Art (left). A SHEATH, FR4.5 PRELUDE 11CM FR 4.5 was advanced into the Fem Art (left) using the Percutaneous technique. 8:28:59 0.9ns pressure bag connected. 8:29:58 A SHEATH, EPS, FR6 FAST CATH FR 6 was advanced into the Fem Vein (left) using the Modified Seldinger technique. 8:30:10 A SHEATH, EPS, FR7 FAST CATH FR 7 was advanced into the Fem Vein (left) using the Modified Seldinger technique. 8:30:21 A SHEATH, FR10 ALBERTA 11CM FR 10 was advanced into the Fem Vein (left) using the Modified S eldinger technique. 8:31:10 20 mL 1% XYLOCAINE given in lab by Lucho Bernard in Right Groin via Subcutaneous. 8:31:29 Vascular access was obtained in the Fem Vein (right). 8:31:36 A SHEATH, EPS, FR8 FAST CATH FR 8 was advanced into the Fem Vein (right) using the Modified Seldinger technique. A CATHETER, JSN, QUAD BUNDLE FR 5 was advanced vis Fem Vein (left) and placed in the CS. Placem ent was visually 8:32:06 confirmed under fluoroscopy. A CATHETER, JSN, QUAD BUNDLE FR 5 was advanced vis Fem Vein (left) and placed in the HIS. Place ment was 8:32:55 visually confirmed under fluoroscopy. 8:34:11 Baseline esophageal temp 36.2. 8:35:03 CATHETER, ACUNAV FR10 ICE ([employer]) FR 10 Was Postioned. 79605 units HEPARIN given in lab by Anesthesia, CLOTHING WORKER via Peripheral IV. Ordered by Tiana Bernard Reason: As per 8:35:13 physicians verbal order. 09/27/2017 9:58:40 AM Financial #: [id number] Patient Name: ITZEL HINES Study #: [id number] Initial MD: Lucho Bernard Date of : 1945 Study Date: 09/27/2017 A SHEATH, FR8.5 STEERABLE SM 71CM BUNDLE 71CM was exchanged in the Fem Vein (right). This was n ecessary in 8:35:34 order for catheter support. 8:35:44 [place] in 8:37:53 A eps was advanced to the right atrium and passed through the septal wall to the left atriu m. 8:37:57 [place] out A CATHETER, FR7 OPTIMA SPIRAL BUNDLE FR7 was advanced vis Fem Vein (right) and placed in the LA . Placement 8:39:03 was visually confirmed under fluoroscopy. Mapping in progress. 8:40:54 Activated Clotting Time Drawn 8:43:50 Mapping complete. Catheter was removed A CATHETER, TACTICATH ABLAT 65 BUNDLE was advanced vis Fem Vein (right) and placed in the LA. P lacement was 8:44:12 visually confirmed under fluoroscopy. 8:47:58 ACT (Normal Range 90-180) = 304 2000 units HEPARIN given in lab by Anesthesia, CLOTHING WORKER via Peripheral IV. Ordered by Lucho Bernard . Reason: As per 8:48:08 physicians verbal order. 1000 units/hr HEPARIN DRIP given in lab by Anesthesia, CLOTHING WORKER via Peripheral IV. Pump/Drip Flow = 10 ml/hr using 8:48:23 [place] [address] units in 250 ml. Ordered by Lucho Bernard. Reason: As per naty forman verbal order. 8:55:01 Activated Clotting Time Drawn 9:01:47 ACT (Normal Range 90-180) = 328 2000 units HEPARIN given in lab by Anesthesia, CLOTHING WORKER via Peripheral IV. Ordered by Lucho Bernard . Reason: As per 9:02:07 physicians verbal order. 9:09:21 Activated Clotting Time Drawn 9:17:00 ACT (Normal Range 90-180) = 349 9:17:08 ECG rhythm of AF noted. Patient cardioverted at 200 joules. Incomplete Success synch 9:17:56 ECG rhythm of AF noted. Patient cardioverted at 300 joules. Success synch 9:18:47 Ablation procedure performed: AFIB. 9:18:54 EP Procedure was performed. 9:23:41 10 min wait. No isuprel. 9:31:51 All catheter(s) removed without difficulty. A SHEATH, FR9 ALBERTA 11CM FR 9 was exchanged in the Fem Vein (right). This was necessary in ord er to minimize 9:33:37 site leakage. 9:33:57 Ending esophageal temp 36. 9:34:10 Heparin gtt off. 40 mg PROTAMINE given in lab by Anesthesia, CLOTHING WORKER via Peripheral IV. Ordered by Lucho Bernard. R silvia: As per 9:37:19 physicians verbal order. 9:42:08 PACU called. Spoke to Rufina 9:42:20 Bedside Report will be given. 9:42:28 Sheath(s) left in place, secured, 0.9ns kvo connected and will be removed in Holding Area 9:42:33 Activated Clotting Time Drawn 9:42:46 Sterile dressing applied to site 09/27/2017 9:58:40 AM Financial #: [id number] Patient Name: ITZEL HINES Study #: [id number] Initial MD: Lucho Bernard Date of : 1945 Study Date: 09/27/2017 Assessment: Final Case, HR=69 BPM, Rhythm=sr, XSHL=460/59 mmhg, Chest Pain=0, Edema=None, Swatara r=Normal, Skin = Warm, Dry Right Pulses: Diallo Ped=2 Left Pulses: Diallo Ped=2 9:42:53 Lower Right Extremities: Color=Normal Lower Left Extremities: Color=Normal Neurological: State=Drowsy, RICE Respiration: Resp=16 B/min, SpO2=96 % 9:44:02 Case End 9:44:26 No case complications noted. 9:44:27 Cine recording checked. 9:44:37 Defibrillator and ground pads removed. Skin intact. 9:49:08 ACT (Normal Range 90-180) = 219 9:50:10 Patient moved to stretcher 20 mg PROTAMINE given in lab by Anesthesia, CLOTHING WORKER via Peripheral IV. Ordered by Lucho Bernard. Reason: As per 9:51:00 physicians verbal order. 9:55:18 Activated Clotting Time Drawn 9:57:03 Pt to Pacu 9:58:29 ACT (Normal Range 90-180) = 150 End Study - Contrast Media Used In Study Contrast Total Opened (mL) Total Used (mL) Total Wasted (mL) Unspecified 0 0 0 End Study - Maximum Contrast Load Max Contrast Load (mL) 237.5 End Study - Radiation Exposure Fluoro Time (minutes) 2.2 End Study - Patient Disposition Complications Transferred To Interventional Outcome No Telemetry Bed successful 09/27/2017 9:58:40 AM Financial #: [id number]
[2017-09-27] MEDS ORDERED: LORazepam 2 MG/ML VIAL IV PUSH PRN (10:00)
[2017-09-27] MEDS ORDERED: SODIUM CHLOR 0.9% 250 ML INJ 250 ML IV PRN (10:00)
[2017-09-27] MEDS ORDERED: oxyCODONE/ACETAMINOPHEN 5 MG/325 MG TAB PO PRN ×2 (10:00)
[2017-09-27] MEDS ORDERED: ATROPINE SULFATE 1 MG/ML VIAL IV PUSH PRN (10:00)
[2017-09-27] MEDS ORDERED: BACITRACIN OINT 0.9 GM PKT TOP ONE (10:00)
[2017-09-27] MEDS ORDERED: ONDANSETRON HCL 4 MG/2 ML VIAL IV PUSH PRN (10:00)
[2017-09-27] MEDS ORDERED: LIDOCAINE HCL 1% 50 ML VIAL INFIL PRN (10:00)
[2017-09-27] MEDS ORDERED: DO NOT ADM ANY ANTICOAGULANT DRUGS PRN (10:01)
--- NOTE | 2017-09-27 11:53 | EKG ---
Date Performed: 09/27/2017 Time Performed: 10:48:42 PTAGE: 72 years EKG: ATRIAL FIBRILLATION INFERIOR MYOCARDIAL INFARCTION , PROBABLY OLD ABNORMAL ECG Compared to prior electrocardiogram, rate has decreased PREVIOUS TRACING : 06/17/2017 16.42 DOCTOR: Prasanna Estrella Interpretating Date/Time 09/27/2017 11:52:19
[2017-09-27] MEDS ORDERED: PHENYLEPH/NS 1000 MCG/10 ML SYR IV ONE (12:00)
[2017-09-27] MEDS ORDERED: ROCURONIUM INJ 50 MG/5 ML SYRINGE IV PUSH ONE (12:00)
[2017-09-27] MEDS ORDERED: GLYCOPYRROLATE 1 MG/5 ML SYRINGE IV PUSH ONE (12:00)
[2017-09-27] MEDS ORDERED: ePHEDrine/NS 25 MG/5 ML SYRINGE IV ONE (12:00)
[2017-09-27] MEDS ORDERED: PROPOFOL 200 MG/20 ML AMP IV ONE (12:00)
[2017-09-27] MEDS ORDERED: NEOSTIGMINE 5 MG/5 ML SYRINGE IV PUSH ONE (12:00)
[2017-09-27] MEDS ORDERED: DEXAMETHASONE SOD PHOS 4 MG/ML VIAL IV ONE (12:00)
[2017-09-27] MEDS ORDERED: LIDOCAINE HCL 1% PF 5 ML SYRINGE OTHER ONE (12:00)
--- NOTE | 2017-09-27 13:45 | PD.CARD ---
Atrial Fibrillation Ablation PROCEDURE DATE: September 27, 2017 PROCEDURES PERFORMED: 1. Electrophysiology study on Isuprel infusion 2. CS cannulation 3. 3-D mapping 4. Transseptal approach 5. Right and left heart catheterization 6. Intracardiac echo 7. Radiofrequency ablation of atrial fibrillation 8. Pulmonary vein isolation 9. Posterior wall ablation 10. Mitral valve isolation 11. Mitral line creation 12. Left atrial tachycardia ablation 13. Roof line creation 14.left atrial appendage 15. Anterior wall ablation 16. Cardioversion INDICATIONS FOR THE PROCEDURE Mr. Oswald is a 72-year-old male with atrial fibrillation, previous ablation, very symptomatic referred for electrophysiology study and ablation. The risks, the nature and the benefits of the procedure were clearly stated to him. The risks include pneumothorax, cardiac perforation, stroke, need for open heart surgery and even . The patient understood and agreed to proceed. DESCRIPTION OF THE PROCEDURE IN DETAIL As written informed consent was obtained prior to esophageal echocardiogram, the patient was kept on the table where he was prepped and draped in the usual sterile fashion. Conscious sedation was initiated and maintained throughout the procedure by the anesthesiologist. Once sedation was verified, the right and left inguinal areas were anesthetized with 2% Xylocaine. Using modified Seldinger technique, the left femoral vein was cannulated on three occasions, three guidewires were advanced. Over the wire a 6, 7 and a 10-Serbian Hemaquet were advanced. Then the left femoral artery was cannulated on one occasion, one guidewire was advanced. Over the wire a 4-Serbian Hemaquet was advanced. Then the right femoral vein was cannulated on one occasion, one guidewire was advanced. Over the wire a 8-Serbian Hemaquet was advanced. Then under fluoroscopic guidance through the 6 and 7-Serbian Hemaquet, two 5-Serbian Korina curved quadripolar electrophysiology catheters were advanced and placed around the His as well as coronary sinus. Basic interval was measured. The patient was in atrial fibrillation. Through the 10-Serbian Hemaquet, a Cordis Clarke AcuNav intracardiac echo catheter was advanced and placed at the right atrium. Multiple view was obtained. There was no pericardial effusion, left atrium was severely enlarged, pulmonary vein was seen, atrial septal was visualized. Then the 8-Serbian Hemaquet in the right femoral vein was exchanged for Agilis transseptal sheath that was placed all the way to the superior vena cava. Through the sheath a Kendal needle was advanced, then the sheath, the dilator and the needle were progressed until foci engaged. Once engaged, the needle was advanced. RF was delivered for 2 seconds. I was able to cross into the left atrium. Once the needle crossed, the dilator was advanced. Once the dilator crossed, the sheath was advanced. Once the sheath crossed, the dilator and the needle were removed. At this point I did flood the system and fluid movement was seen in the left atrium the indicates the sheath is in good position. The patient already received 10,000 units of heparin. The goal is to keep an ACT around 350 during ablation. Then through the sheath a [place]. Olvin 20 pulse circumferential catheter was advanced. Using Gipis endocardial solution mapping system, a two-dimensional configuration of the left atrium was obtained. Points were taken at the left superior and inferior veins, right superior and inferior veins, mitral valve, and appendages. Then through the sheath a St. Olvin TactiCath 65cm 3.5mm irrigated tipped mapping and radiofrequency ablation catheter was advanced. Esophageal probe was placed temperature monitoring during ablation. When it increased to 0.5 degrees Celsius above baseline, I moved to a different area of the atrium. First I did isolate the left superior and inferior vein. I did make a big pilot point around the veins. Posterior was ablated. Patient was in left atrial tach. Then a roof line was created, a floor line was created, a mitral line was isolated, then the mitral valve was isolated. I did create a line from the floor to the roof area, passing by the left atrial appendage. Then left atrial appendage was isolated. Then the right superior and inferior veins were isolated. I did remap the atrium. There is no significant signal in the atrium. At this point I decided to proceed with cardioversion. A 200 sync biphasic joule was delivered that converted the patient into sinus rhythm. At that point I did advance the circumferential catheter again into the vein. There was no signal into the vein, pacing from the vein showed no conduction to the atrium. No tachyarrhythmia was induced, post Isuprel no tachyarrhythmia was induced. At that point the procedure was complete. All catheters were removed, atrial septal sheath was exchanged for 9- Serbian Hemaquet, intracardiac echo showed no pericardial effusion. There is still good flow in the pulmonary vein. The patient is going to be transferred to the recovery room. No incident report. The patient tolerated the procedure. Blood loss was minimal. FINDINGS 1. Electrocardiogram: At baseline the patient was in atrial fibrillation, post procedure the patient was in sinus rhythm. 2. Basic interval: Base cycle length was around 640. Post ablation she was around 1080 milliseconds. AH at 140 and HV at 60 milliseconds. 3. Tachyarrhythmia: Atrial fibrillation was mapped and ablated. Atrial tachycardia was ablated. The ablation was successful. CONCLUSION Successful electrophysiology study, mapping, radiofrequency ablation of atrial fibrillation, left atrial tachycardia, pulmonary vein isolation, posterior ablation, mitral valve isolation, mitral line creation, roof line creation, floor line creation, left atrial tachycardia, left atrial appendage isolation and cardioversion. COMMENTS AND RECOMMENDATIONS The patient is going to be transferred to the telemetry unit. Will be observed and when stable can be discharged home. Lucho Bernard MD September 27, 2017 13:45
[2017-09-27] MEDS: ATORVASTATIN 40 MG TAB PO SCH (14:00)
[2017-09-27] MEDS: AMIODARONE 200 MG TAB PO SCH (14:00)
[2017-09-27] MEDS: LOSARTAN 50 MG TAB PO SCH (14:00)
--- NOTE | 2017-09-27 15:23 | EKG ---
Date Performed: 09/27/2017 Time Performed: 07:00:36 PTAGE: 72 years EKG: POSSIBLE atrial fibrillation\atrial flutter Possible inferior infarct - age undetermined Ab normal ECG Compared to prior electrocardiogram, POSSIBLE atrial fibrillation is now present . PREVIOUS TRACING : 06/17/2017 16.42 DOCTOR: Prasanna Estrella Interpretating Date/Time 09/27/2017 15:20:39
[2017-09-27] MEDS: APIXABAN 5 MG TABLET PO SCH (20:33)
[2017-09-27] MEDS ORDERED: TEMAZEPAM 15 MG CAP PO PRN (21:00)
[2017-09-28] VITALS (13 sets, daily range): BP systolic 144–151; BP diastolic 83–95; PULSE 58–78; RESP 12–18; TEMP 97.4–98.4; O2SAT 92–94
[2017-09-28 07:05] LABS: INTERNATIONAL NORMALIZED RATIO 1.6 RATIO; PROTHROMBIN TIME - PATIENT 15.9 SEC (9.8-11.6)
--- NOTE | 2017-09-28 08:53 | EKG ---
Date Performed: 09/28/2017 Time Performed: 06:37:02 PTAGE: 72 years EKG: Sinus rhythm with PVC(s) with borderline 1st degree A-V block Prolonged QT interval Consider left atrial abnormal ity Rightward axis Possible inferior infarct - age undetermined Abnormal ECG PREVIOUS TRACING : 09/27/2017 18.05 Since the previous tracing, no significant change noted DOCTOR: Siva Garcia Interpretating Date/Time 09/28/2017 08:48:59
[2017-09-28] MEDS ORDERED: NON-FORMULARY DRUG (Coenzyme Q10 (Ubidecarenone) (Coq10) 100 MG) PO SCH (09:00)
[2017-09-28] MEDS ORDERED: CHOLECALCIFEROL (VIT D3) 400 UNIT TAB PO SCH (09:00)
[2017-09-28] MEDS ORDERED: FENOFIBRATE 145 MG TAB PO SCH (09:00)
--- NOTE | 2017-09-28 09:28 | HHI.PR ---
Subjective Remarks Feeling better Objective Vital Signs Date Time Temp Pulse Resp B/P (MAP) Pulse Ox O2 Delivery O2 Flow Rate FiO2 09/28/17 07:57 92 Room Air 09/28/17 07:44 97.7 59 12 147/95 (112) 92 09/28/17 05:59 63 09/28/17 05:00 60 09/28/17 04:00 60 09/28/17 04:00 97.4 61 18 151/90 (110) 93 09/28/17 03:00 60 09/28/17 02:00 62 09/28/17 01:00 64 09/28/17 00:00 Room Air 09/28/17 00:00 97.5 78 18 150/89 (109) 94 09/28/17 00:00 67 09/27/17 23:00 76 09/27/17 22:00 74 09/27/17 21:00 92 09/27/17 20:00 98.4 72 18 144/83 (103) 92 09/27/17 20:00 80 09/27/17 20:00 Room Air 09/27/17 19:00 72 09/27/17 18:00 74 09/27/17 17:00 72 09/27/17 16:00 72 09/27/17 15:56 97.9 72 13 156/95 (115) 92 09/27/17 15:15 97.9 69 16 132/66 (88) 92 Nasal Cannula 2 09/27/17 13:00 66 20 135/79 (97) 96 Nasal Cannula 2 09/27/17 12:30 66 22 134/77 (96) 95 Nasal Cannula 2 09/27/17 12:00 67 22 133/77 (95) 94 Nasal Cannula 2 09/27/17 11:30 64 22 131/80 (97) 93 Nasal Cannula 2 09/27/17 11:15 64 22 133/77 (95) 92 Nasal Cannula 2 09/27/17 10:45 64 16 132/77 (95) 96 Nasal Cannula 2 09/27/17 10:30 63 16 132/78 (96) 95 Nasal Cannula 2 09/27/17 10:15 66 20 132/75 (94) 97 Nasal Cannula 4 09/27/17 10:01 98.1 70 16 126/72 (90) 93 Simple Mask 6 I/O 09/27/17 09/27/17 09/27/17 09/28/17 09/28/17 09/28/17 07:00 15:00 23:00 07:00 15:00 23:00 Intake Total 800 ml Output Total 700 ml 450 ml Balance -700 ml 350 ml Intake Oral 800 ml Output Urine Total 700 ml 450 ml Bladder Scan Volume Amount 132 ml 366 ml # Voids 0 Result Diagram: 09/27/1730 09/27/17 06 Imaging Alert, fully oriented Lungs: ventilated Heart: S1, S2 regular, no gallop Abdomen: soft, no mass Ext: no edema Current Medications Medications (Trade) Dose Ordered Sig/Wendy Route Start Time Stop Time Status Last Admin Sodium Chloride 500 ml @ 30 mls/hr [id number] IV 09/27/17 06:30 09/27/17 07:15 (Ativan) 1 mg SAS [employer] DEVELOPER SL 09/27/17 06:30 09/30/17 06:29 Lactated Ringer's 1,000 ml @ 30 mls/hr Q24H PRN IV 09/27/17 06:30 09/30/17 06:29 Sodium Chloride 500 ml @ 30 mls/hr [id number] PRN IV 09/27/17 06:30 09/30/17 06:29 (Lopressor) 25 mg SAS E[employer] DEVELOPER PRN PO 09/27/17 06:30 09/30/17 06:29 (Betadine 5% Antisepsis Kit) 1 applic [employer] E[employer] DEVELOPER PRN EACH NARE 09/27/17 06:30 09/30/17 06:29 09/27/17 06:53 (Chlorhexidine 2% Cloth) 3 pack SAS [employer] DEVELOPER PRN TOPICAL 09/27/17 06:30 09/30/17 06:29 09/27/17 06:53 (Cordarone) 200 mg DAILY PO 09/27/17 09:45 09/27/17 14:00 (Eliquis) 5 mg BID PO 09/27/17 21:00 09/27/17 20:33 (Vitamin D3) 400 units DAILY PO 09/28/17 09:00 (Cozaar) 100 mg DAILY PO 09/27/17 09:45 09/27/17 14:00 (Restoril) 30 mg HS PRN PO 09/27/17 21:00 09/27/17 23:22 (Tricor) 145 mg DAILY PO 09/28/17 09:00 (Lipitor) 40 mg DAILY PO 09/27/17 09:45 09/27/17 14:00 (Percocet 5-325 Mg) 1 tab Q4H PRN PO 09/27/17 10:00 (Percocet 5-325 Mg) 2 tab Q4H PRN PO 09/27/17 10:00 (Ativan Inj) 0.5 mg UNSCH PRN IV PUSH 09/27/17 10:00 09/28/17 09:59 (Atropine Inj) 0.5 mg UNSCH PRN IV PUSH 09/27/17 10:00 Sodium Chloride 250 ml @ 500 mls/hr ONCE PRN IV 09/27/17 10:00 09/28/17 09:59 (Zofran Inj) 4 mg Q4H PRN IV PUSH 09/27/17 10:00 (Xylocaine 1% Inj (50 ml)) 10 ml UNSCH PRN INFIL 09/27/17 10:00 09/28/17 09:59 ([facility] Nursing Information) ALL NURSING DEPARTME... UNSCH PRN .XX 09/27/17 10:01 09/28/17 10:00 Assessment and Plan Problem List: (1) Atrial fibrillation ICD Codes: I48.91 - Unspecified atrial fibrillation Plan: In sinus rhythm Doing better SP ablation patient aware of the very enlarged left atrium Advise to stop drinking can be DH follow up as scheduled (2) Palpitations ICD Codes: R00.2 - Palpitations Plan: No palpitation reported Doing better Lucho Bernard MD September 28, 2017 09:28
--- NOTE | 2017-09-28 09:48 | EKG ---
Date Performed: 09/27/2017 Time Performed: 18:05:42 PTAGE: 72 years EKG: Sinus rhythm with borderline 1st degree A-V block. Prolonged QT interval Possible inferior infarct - age undeterm ined Nonspecific T-wave flattening Abnormal ECG PREVIOUS TRACING : 09/27/2017 10.48 Suspect the previous EKG is sinus rhythm and not atrial fib rillation. DOCTOR: Siva Garcia Interpretating Date/Time 09/28/2017 09:47:39
[2017-09-28] MEDS: AMIODARONE 200 MG TAB PO SCH (09:53)
[2017-09-28] MEDS: ATORVASTATIN 40 MG TAB PO SCH (09:53)
[2017-09-28] MEDS: APIXABAN 5 MG TABLET PO SCH (09:53)
[2017-09-28] MEDS: LOSARTAN 50 MG TAB PO SCH (09:58)
== END 2017-09-28 11:44 | disposition home or self-care (01) ==
LOC: HDOC 06:03 → HDIC 06:04 → HCIS 15:34 → HDOC 09-28 11:44
PROVIDERS: ATTEND Internal Medicine Interventional Cardiology
DX: I48.91 Unspecified atrial fibrillation (principal); I11.9 Hypertensive heart disease without heart failure; R00.2 Palpitations; I08.3 Combined rheumatic disorders of mitral, aortic and tricuspid valves; R06.02 Shortness of breath; I25.10 Atherosclerotic heart disease of native coronary artery without angina pectoris; Z95.1 Presence of aortocoronary bypass graft; Z79.01 Long term (current) use of anticoagulants
CPT/HCPCS: 00537; 80048; 85002; 85025; 85610; 85730; 86850; 86900; 86901; 92960; 93005; 93312; 93320; 93325; 93613; 93623; 93656; 93662; C1730; C1731; C1732; C1759; C1766; C2630; J1100; J1644; J1956; J2250; J2370; J2710; J2720; J3010; J3480; J7040; J7050